=== PATIENT | female | born 1970 | race Caucasian/White ===

== ENCOUNTER 2019-01-19 16:00 | Inpatient (IN) | payer OTHER ==
[~2019-01-19] VITALS: Ht 162.6 cm; Wt 79.8 kg
--- NOTE | ~2019-01-19 | OR ---
[facility] [address] [facility] [place], [place] [address] Draft DATE OF OPERATION: 02/05/2019 SURGEON: Lizzette Patterson MD DATE OF PROCEDURE: 02/05/2019 CLEAN UP SUPERVISOR: Matthew Dye MD PREOPERATIVE DIAGNOSES: Large uterine fibroids, menorrhagia, uterovaginal prolapse, stress incontinence. POSTOPERATIVE DIAGNOSES: Large uterine fibroids, menorrhagia, uterovaginal prolapse, stress incontinence. PROCEDURES PERFORMED: Laparoscopically-assisted vaginal hysterectomy, bilateral salpingectomy, Obtryx sling procedure, cystoscopy, rectocele repair with cuff suspension. ANESTHESIA: General ET. ESTIMATED BLOOD LOSS: 1500 mL. DRAINS: Fontaine catheter. PACKS: Vaginal. INDICATIONS AND FINDINGS: The patient is a 48-year-old female, 4, para 4, who has had known fibroids which have been worsening over this past year with increasing bleeding and pelvic pressure. She also has a long history of uterovaginal prolapse, which has also become more symptomatic. She is now having worsening stress incontinence and desires at this point surgical correction. At the time of surgery, exam under anesthesia revealed an enlarged uterus, which was fairly round but a little bit worse on her right side, about 14 week size. She did have moderate prolapse with a grade 2 cystocele and grade 2 rectocele. At PATIENT NAME: MELISSA FUCHS OPERATIVE REPORT DATE OF : 74 REPORT #: [id number] PHYSICIAN: LIZZETTE PATTERSON MD PCP: NO PRIMARY CARE PHYSICIAN REPORT IS CONFIDENTIAL AND NOT TO BE RELEASED WITHOUT AUTHORIZATION [facility] [address] [place], [place] [address] Draft the time of surgery, exam under laparoscopy, the ovaries were normal. Because of the size and shape of the uterus, it was not possible to do a total laparoscopic hysterectomy, which is why it was converted. DESCRIPTION OF PROCEDURE: The patient was prepped and draped in the dorsal lithotomy position. A weighted speculum was placed. The anterior lip of the cervix was visualized and grasped with a single-tooth tenaculum. The cavity sounded to 14 cm. The endocervical canal was then dilated and the VCare cannula placed and the balloon inflated at the fundus. The tenaculum and speculum were removed and the cup was fitted over the cervix and a locking cap fitted into place. Attention was then directed above. The infraumbilical area was injected with 0.5% Marcaine plain. An incision was made with a knife and then each layer was serially elevated and incised until the fascia was opened and identified. These stay sutures were placed with 0 Vicryl. The peritoneum was opened bluntly. The Carlos A cannula was then placed. The balloon inflated. Placement of the scope confirmed proper positioning. Following this, secondary ports were placed just below the level of the umbilicus and fairly far laterally. Each of these were placed under direct vision. The areas were transilluminated, injected with the Marcaine, incision made with a knife and the trocars placed under direct vision. The left hand port was a 5 mm port and the right was the Veress needle, followed with the expanding port. Following this, the abdomen was evaluated and felt that at least the upper pedicles could probably be approached though unlikely that complete laparoscopic hysterectomy could be performed because of the size of the uterus. The LigaSure [place] device was then used to excise the patient's left tube serially coagulating and then dividing the mesosalpinx and this was removed through the expanding port on the right. Following this, the round ligament and utero-ovarian pedicle were serially coagulated and divided. At this point, the level of the internal os was reached, but because of the difficulty with manipulation, it was felt unsafe to proceed further. Attention was then directed to the patient's right side. The tube and broad ligament were serially coagulated and divided as was the round ligament. The utero-ovarian pedicle could not really be approached well because of the size of the fibroid on that side and the decision at this point was made to abandon the upper approach and to proceed vaginally. The ports were left in place but the instruments were removed from the abdomen. Attention was directed down below. The VCare cannula was removed from the uterus and a weighted speculum was placed. The cervix was grasped on the anterior and posterior lips with a single-tooth tenaculum. The cervix was injected with 1% lidocaine with 1:200,000 epi to a volume of 10 mL. The posterior cul-de-sac was entered sharply and the uterosacral ligaments identified and grasped with curved Z clamps, divided with the Taylor scissors. Suture ligated with 0 Vicryl. This was done bilaterally. The vaginal mucosa was then circumscribed with a knife and sharp dissection was used to remove the vaginal mucosa up off the cervix. An attempt was made open anteriorly but this could not be accomplished at this point. Serial bites were taken in the cardinal ligament areas and the uterine vessel areas on each side with each pedicle PATIENT NAME: MELISSA FUCHS OPERATIVE REPORT DATE OF : 74 REPORT #: [id number] PHYSICIAN: LIZZETTE PATTERSON MD PCP: NO PRIMARY CARE PHYSICIAN REPORT IS CONFIDENTIAL AND NOT TO BE RELEASED WITHOUT AUTHORIZATION [facility] [address] [place], [place] [address] Draft grasped with curved Z clamps, divided with the Taylor scissors and suture ligated with 0 Vicryl. Following this, another attempt was made to enter the anterior peritoneum and this was successful. Several more bites were taken on each side again incorporating both the posterior and anterior leaves of the peritoneum. These were divided and serially ligated as well. At this point, no further progress could be made in this manner and it was determined that the uterus needed to be morcellated. The cervix was removed as well as a wedge from the center of the uterus. Further dissection was done morcellating more of the fibroid on the patient's right side. Eventually, the uterus was of such size that it could be delivered and single remaining pedicle on the patient's left side was grasped and divided. This was followed by free tie of 0 Vicryl followed by suture ligature of 0 Vicryl. At this point, attention was then directed above. The vagina was packed with a glove containing a wet lap tape. Gloves were changed and attention directed above where the abdomen was again inflated with the carbon dioxide gas. The abdomen was copiously irrigated and bleeding points were controlled, particularly near the right utero-ovarian pedicle and at the right cuff. There was a small amount of bleeding around the left uterine vessels as well. At this point, it was felt that it was appropriate to close the cuff. This was done using the Endo Stitch. The posterior cuff was closed with a running suture from the patient's right uterosacral ligament, taking care to incorporate both the vaginal mucosa posteriorly as well as anteriorly running across to the patient's left uterosacral ligament and then back to the center. Following this, the area was irrigated and appeared to be hemostatic. The patient's right tube was then excised using the LigaSure device. This was serially coagulated and divided along the mesosalpinx and the specimen removed from the expanded port. The pressure was turned down and the cuff was inspected and there was seen to be some bleeding near the right utero-ovarian pedicle, which became fairly brisk. This required use of the LigaSure device to control this bleeding. At this point, irrigation was repeated and the area was found to be hemostatic. The pressure was turned down again and again there was no evidence of any ongoing bleeding. Following this, the cuff was dribbled over with Evicel to help further ensure hemostasis. Preparations were then made for closure with removal of the abdominal instruments after allowing as much CO2 as possible to escape. The fascial incision of the umbilicus was reidentified and closed with a running suture of 0 Vicryl. The skin incisions were closed with subcuticular sutures of 3-0 Vicryl Rapide. Attention was then directed down below. The lap tape in the vagina was removed. The anterior wall of the vagina was fairly short. There was a little preach of a cystocele, but it was not felt that there was enough at that point to allow for a cystocele repair particularly since she was going to have a sling performed. Because of this, the decision was made to proceed with a sling only. The anterior vagina was incised superficially over the urethra in the mid urethral area. Further dissection was done using the Metzenbaum to allow for dissection laterally to allow finger to be placed behind the pubic bone on each side. The obturator notches were then identified and an incision made over each of these. The trocars for the sling were then placed at the lowest most medial portion of the obturator notch placed immediately behind the pubic PATIENT NAME: MELISSA FUCHS OPERATIVE REPORT DATE OF : 74 REPORT #: [id number] PHYSICIAN: LIZZETTE PATTERSON MD PCP: NO PRIMARY CARE PHYSICIAN REPORT IS CONFIDENTIAL AND NOT TO BE RELEASED WITHOUT AUTHORIZATION [facility] [address] [place], [place] [address] Draft rami and through the lateral apex of the vaginal incision. These were done bilaterally. Following this, cystoscopy was done. She did receive some IV fluorescein. The Fontaine catheter was removed and the cystoscope placed. The bladder was evaluated. There was no evidence of any injury to the bladder. Both ureteral orifices were evaluated. There was free flow of urine from each of the ureteral orifices. Particular attention was paid laterally and inferiorly and there was no evidence of any trocar incursion into the bladder. Following this, cystoscopy was complete. The instruments were removed after draining the bladder and the Fontaine catheter was replaced. Following this, the sling was placed, taking care to keep it in the midportion of the urethra with gentle tension. It was felt to be lax enough not to be obstructing. The cover was removed and the excess trimmed. The incision along the vaginal wall was then closed with a running suture of 2-0 Vicryl. The posterior wall repair was then begun. A triangle of tissue was removed from the perineal body with the knife. The vaginal mucosa was undermined and incised in the midline to the apex of the vagina. The vaginal mucosa was further undermined into the lateral aspects of such that the ischial spines could be palpated. The Capio device was used to place a #0 [place] suture into the midportion of the sacrospinous ligament for use later. The perirectal fascia was of poor quality. Interrupted sutures of 2-0 Vicryl were placed reapproximating the tear in the perirectal type fascia. This was done primarily at the lower aspect or distal aspect of the vagina. The [place] suture at the sacrospinous ligament was then used to anchor one end to the angle of the vaginal cuff and these were tied down with equal tension bringing the cuff up significantly. Following this, a few more sutures were placed plicating the perirectal fascia. The rectal examination was then done, which showed that there were no sutures compromising the rectal lumen. FloSeal was injected around the sacrospinous ligaments on each side. The vaginal mucosa was then trimmed a small amount and the vaginal mucosa was closed with a running suture of 2-0 Vicryl from the apex of the vagina at the hymenal ring. There was a little oozing noted at the right apex of the vagina and there was found to be a tear in the vaginal mucosa laterally and this was repaired superficially with a [id number] suture of 0 Vicryl. There was also a raw area at the right angle and this was also closed over superficially with 2-0 Vicryl suture in a [id number] manner. Additionally, a few other [id number] were required in the midportion of the vaginal incision for hemostasis. The vestibule was recreated with a running suture of the 2-0 Vicryl. The perineal body was reapproximated with interrupted sutures of 2-0 Vicryl. The skin was closed with subcuticular stitches of the 2-0 Vicryl. Inspection of the vault showed good length and caliber. There was no evidence of any ongoing bleeding. The skin incisions for the sling were closed with interrupted sutures of 3-0 Vicryl. The vaginal canal was packed with sulfa coated gauze. All sponge and needle counts were correct. She tolerated procedure well and was taken to the recovery room in good condition. PATIENT NAME: MELISSA FUCHS OPERATIVE REPORT DATE OF : 74 REPORT #: [id number] PHYSICIAN: LIZZETTE PATTERSON MD PCP: NO PRIMARY CARE PHYSICIAN REPORT IS CONFIDENTIAL AND NOT TO BE RELEASED WITHOUT AUTHORIZATION [facility] [address] [place], [place] [address] Draft MD DEWAYNE Martínez/BECKY /[id number] cc: Matthew Dye MD Copies: MATTHEW DYE MD ~ PATIENT NAME: MELISSA FUCHS OPERATIVE REPORT DATE OF : 74 REPORT #: [id number] PHYSICIAN: LIZZETTE PATTERSON MD PCP: NO PRIMARY CARE PHYSICIAN REPORT IS CONFIDENTIAL AND NOT TO BE RELEASED WITHOUT AUTHORIZATION
== END 2019-02-06 16:20 | disposition home or self-care (01) | DRG 743 ==
LOC: DSVR 02-05 05:45 → MS 02-05 06:45 → FBC 02-05 12:00
PROVIDERS: ADMIT Obstetrics & Gynecology
PROC: 0UT9FZZ Resection of Uterus, Via Natural or Artificial Opening With Percutaneous Endoscopic Assistance (ICD-10-PCS; principal; 2019-02-05 06:45)
PROC: 0UT7FZZ Resection of Bilateral Fallopian Tubes, Via Natural or Artificial Opening With Percutaneous Endoscopic Assistance (ICD-10-PCS; 2019-02-05 06:45)
PROC: 0TSD0ZZ Reposition Urethra, Open Approach (ICD-10-PCS; 2019-02-05 06:45)
PROC: 0JQC0ZZ Repair Pelvic Region Subcutaneous Tissue and Fascia, Open Approach (ICD-10-PCS; 2019-02-05 06:45)
DX: D25.9 Leiomyoma of uterus, unspecified (principal); N81.2 Incomplete uterovaginal prolapse; N92.1 Excessive and frequent menstruation with irregular cycle; N39.3 Stress incontinence (female) (male); D64.9 Anemia, unspecified; D69.6 Thrombocytopenia, unspecified
CPT/HCPCS: 00840; 36415; 80048; 85025; 85027; C1771; C2631; J0131; J0694; J1100; J1644; J1885; J2250; J2274; J2370; J2405; J2704; J2765; J3010; J7060; J7120

== ENCOUNTER 2020-10-25 13:54 | Emergency (ER) | payer OTHER ==
[~2020-10-25] VITALS: Ht 162.6 cm; Wt 83.5 kg
[2020-10-25] MEDS ORDERED: NORCO 5-325 TA1 EACH PO (16:25)
[2020-10-25] MEDS ORDERED: COL-RITE250 MG PO (16:25)
== END 2020-10-25 17:10 | disposition home or self-care (01) ==
LOC: ED 13:54
DX: S52.501A Unspecified fracture of the lower end of right radius, initial encounter for closed fracture (principal); V00.211A Fall from ice-skates, initial encounter
CPT/HCPCS: 25605; 73110; 99152; 99283-25; J2270; J2405